=== PATIENT | female | born 1955 | race African-American/Black ===

== ENCOUNTER 2018-01-29 12:03 | Emergency (ER) | payer OTHER, MEDICAID ==
[~2018-01-29] VITALS: Ht 162.6 cm; Wt 87.4 kg
[2018-01-29 12:35] LABS: HEMATOCRIT. 31.8 % (36.0-48.0); HEMOGLOBIN. 10.4 g/dL (12.0-16.0); MEAN CORPUSCULAR HEMOGLOBIN 28.8 pg (28.0-32.0); MEAN CORPUSCULAR VOLUME 87.6 fL (81.0-99.0); MEAN PLATELET VOLUME 9.5 fl (7.4-10.4); PLATELET 323 x1000/uL (130-400); RED BLOOD CELL COUNT 3.63 mill/uL (4.2-5.4); RED CELL DISTRIBUTION WIDTH 14.7 % (11.6-14.6)
[2018-01-29 12:43] LABS: CHLORIDE 105 mEq/L (98-107)
[2018-01-29 13:10] LABS: PLATELET ESTIMATE NORMAL
[2018-01-29] MEDS ORDERED: VISCOUS LIDOCAINE 2% 15 ML UDC MM STA (16:21)
[2018-01-29] MEDS ORDERED: LACTULOSE 20G/30ML UDC PO ONE (16:30)
[2018-01-29] MEDS ORDERED: MAGNESIUM CITRATE 300ML SOLUTION PO ONE (16:30)
[2018-01-29 17:16] LABS: CLARITY URINE CLEAR (CLEAR); COLOR URINE YELLOW (YELLOW); KETONES URINE NEGATIVE (NEGATIVE); LEUKOCYTE ESTERASE URINE NEGATIVE (NEGATIVE); NITRITE URINE NEGATIVE (NEGATIVE); OCCULT BLOOD URINE TRACE (NEGATIVE); PH URINE 5.5 (4.5-8.0); PROTEIN URINE 3+ (NEGATIVE); SPECIFIC GRAVITY URINE 1.008 (1.005-1.030); UROBILINOGEN URINE 0.2 E.U./dL (0.2-1.0)
[2018-01-29 19:01] VITALS: BP 129/69
== END 2018-01-29 19:02 | disposition home or self-care (01) ==
LOC: ER 12:03
DX: K59.00 Constipation, unspecified (principal); N28.9 Disorder of kidney and ureter, unspecified; R10.30 Lower abdominal pain, unspecified; I10 Essential (primary) hypertension; F17.210 Nicotine dependence, cigarettes, uncomplicated; F12.90 Cannabis use, unspecified, uncomplicated; Z71.6 Tobacco abuse counseling
CPT/HCPCS: 36415; 74176; 80053; 81003; 83690; 85025; 99285; 99406

== ENCOUNTER 2019-12-02 12:01 | Inpatient (IN) | payer OTHER, MEDICAID ==
[~2019-12-02] VITALS: Ht 152.4 cm; Wt 73.5 kg
[2019-12-02] MEDS ORDERED: KETOROLAC 30MG/ML VIAL IV ONE (12:30)
[2019-12-02] MEDS ORDERED: KETOROLAC 30MG/ML VIAL IM ONE (13:15)
[2019-12-02] MEDS ORDERED: MORPHINE SULFATE 10 MG/ML CPJ IV ONE (15:45)
[2019-12-02] MEDS ORDERED: HYDROCODONE/ACETAMINOPHEN 5/325MG TABLET PO STA (17:26)
[2019-12-02 18:10] LABS: BASOPHILS % 0.6 % (0.0-2.0); EOSINOPHILS % 2.4 % (0.0-5.0); HEMATOCRIT. 31.4 % (36.0-48.0); HEMOGLOBIN. 10.6 g/dL (12.0-16.0); LYMPHOCYTES % 10.7 % (20.0-50.0); MEAN CORPUSCULAR VOLUME 86.3 fL (81.0-99.0); MEAN PLATELET VOLUME 9.3 fl (7.4-10.4); MONOCYTES % 5.2 % (2.0-8.0); NEUTROPHILS % 81.1 % (40.0-76.0); PLATELET 327 x1000/uL (130-400); RED BLOOD CELL COUNT 3.64 mill/uL (4.2-5.4); RED CELL DISTRIBUTION WIDTH 15.7 % (11.6-14.6)
[2019-12-02 18:15] LABS: CHLORIDE 107 mEq/L (98-107)
[2019-12-02 18:16] LABS: INR 0.9; PROTHROMBIN TIME 9.9 sec (9.6-11.0)
[2019-12-02 18:17] LABS: ETHANOL BLOOD < 10 mg/dL
[2019-12-02 18:31] LABS: CREATINE KINASE 45 IU/L (26-192)
[2019-12-02] MEDS ORDERED: ACETAMINOPHEN 325MG TABLET PO PRN (19:15)
[2019-12-02] MEDS ORDERED: HYDROCODONE/ACETAMINOPHEN 5/325MG TABLET PO PRN (19:15)
[2019-12-02] MEDS ORDERED: ONDANSETRON HCL 4MG/2ML INJ IV PRN (19:15)
[2019-12-02] MEDS ORDERED: POTASSIUM CHLORIDE 20MEQ TABLET SR PO NR (19:15)
[2019-12-02] MEDS ORDERED: POTASSIUM CHLORIDE 10MEQ TABLET SR PO NR (21:15)
[2019-12-03] MEDS: HEPARIN 5000 UNITS/ML VIAL SUBCUT SCH ×3 (00:43→22:17)
[2019-12-03] MEDS: CLONIDINE 0.1MG TABLET PO PRN ×2 (00:44→14:34)
[2019-12-03] MEDS: HYDROCODONE/ACETAMINOPHEN 5/325MG TABLET PO PRN ×3 (00:45→22:18)
[2019-12-03] MEDS ORDERED: TRAZODONE HCL 50MG TABLET PO PRN ×2 (04:00→04:15)
[2019-12-03 05:56] LABS: CLARITY URINE CLEAR (CLEAR); COLOR URINE YELLOW (YELLOW); KETONES URINE NEGATIVE (NEGATIVE); LEUKOCYTE ESTERASE URINE NEGATIVE (NEGATIVE); NITRITE URINE NEGATIVE (NEGATIVE); OCCULT BLOOD URINE TRACE (NEGATIVE); PROTEIN URINE 3+ (NEGATIVE); SPECIFIC GRAVITY URINE 1.017 (1.005-1.030); UROBILINOGEN URINE 0.2 E.U./dL (0.2-1.0)
[2019-12-03] MEDS: TRAMADOL 50MG TABLET PO PRN (06:00)
[2019-12-03 06:09] LABS: METHADONE URINE SCREEN NEGATIVE (NEGATIVE); OPIATES URINE SCREEN PRESUMTIVE POSITIVE (NEGATIVE)
[2019-12-03 06:10] LABS: *AMPHETAMINES SCREEN URINE NEGATIVE (NEGATIVE); *BARBITURATES SCREEN URINE NEGATIVE (NEGATIVE); *BENZODIAZEPINES SCREEN URINE NEGATIVE (NEGATIVE); *COCAINE SCREEN URINE PRESUMTIVE POSITIVE (NEGATIVE); CANNABINOID URINE SCREEN NEGATIVE (NEGATIVE); PHENCYCLIDINE URINE SCREEN NEGATIVE (NEGATIVE)
[2019-12-03 08:28] LABS: BASOPHILS % 0.4 % (0.0-2.0); EOSINOPHILS % 3.4 % (0.0-5.0); HEMATOCRIT. 28.6 % (36.0-48.0); HEMOGLOBIN. 9.6 g/dL (12.0-16.0); LYMPHOCYTES % 19.9 % (20.0-50.0); MEAN CORPUSCULAR HEMOGLOBIN 28.9 pg (28.0-32.0); MEAN CORPUSCULAR VOLUME 86.6 fL (81.0-99.0); MEAN PLATELET VOLUME 8.9 fl (7.4-10.4); MONOCYTES % 8.5 % (2.0-8.0); NEUTROPHILS % 67.8 % (40.0-76.0); PLATELET 280 x1000/uL (130-400); RED BLOOD CELL COUNT 3.31 mill/uL (4.2-5.4); RED CELL DISTRIBUTION WIDTH 15.5 % (11.6-14.6)
[2019-12-03 08:35] LABS: CHLORIDE 112 mEq/L (98-107)
[2019-12-03] MEDS ORDERED: SODIUM CHLORIDE 0.45% 1,000 ML IV SCH (09:45)
[2019-12-03 10:39] LABS: CREATINE KINASE 37 IU/L (26-192)
[2019-12-03 12:00] VITALS: BP_SYST 142; BP_SYST 164; BP_DIAS 70; BP_DIAS 95
[2019-12-03] MEDS ORDERED: LORAZEPAM 1MG TABLET PO PRN (12:45)
[2019-12-03] MEDS: GABAPENTIN 100MG CAPSULE PO SCH ×2 (14:34→22:17)
[2019-12-03] MEDS: LIDOCAINE 5% PATCH TOP SCH (15:00)
[2019-12-03 16:00] VITALS: BP 142/75
[2019-12-03 20:00] VITALS: BP 120/71
[2019-12-04] VITALS: BP 146/78
[2019-12-04 04:00] VITALS: BP 149/78
[2019-12-04] MEDS: HYDROCODONE/ACETAMINOPHEN 5/325MG TABLET PO PRN ×3 (04:19→17:34)
[2019-12-04] MEDS: GABAPENTIN 100MG CAPSULE PO SCH (06:25)
[2019-12-04 07:03] LABS: BASOPHILS % 0.5 % (0.0-2.0); EOSINOPHILS % 4.5 % (0.0-5.0); HEMATOCRIT. 26.8 % (36.0-48.0); LYMPHOCYTES % 29.3 % (20.0-50.0); MEAN CORPUSCULAR HEMOGLOBIN 29.4 pg (28.0-32.0); MEAN CORPUSCULAR VOLUME 87.2 fL (81.0-99.0); MEAN PLATELET VOLUME 9.8 fl (7.4-10.4); MONOCYTES % 8.7 % (2.0-8.0); PLATELET 275 x1000/uL (130-400); RED BLOOD CELL COUNT 3.08 mill/uL (4.2-5.4); RED CELL DISTRIBUTION WIDTH 15.3 % (11.6-14.6)
[2019-12-04 07:07] LABS: CHLORIDE 111 mEq/L (98-107)
[2019-12-04 08:00] VITALS: BP 132/74
[2019-12-04] MEDS: HEPARIN 5000 UNITS/ML VIAL SUBCUT SCH ×2 (09:03→21:14)
[2019-12-04] MEDS: LIDOCAINE 5% PATCH TOP SCH (09:03)
[2019-12-04 12:00] VITALS: BP 123/72
[2019-12-04] MEDS: CITALOPRAM HYDROBROMIDE 10MG TABLET PO SCH (12:55)
[2019-12-04] MEDS: GABAPENTIN 300MG CAPSULE PO SCH ×2 (14:37→21:29)
[2019-12-04] MEDS: LACTULOSE 20G/30ML UDC PO SCH ×3 (14:37→21:00)
[2019-12-04 16:00] VITALS: BP 115/68
[2019-12-04] MEDS: DOCUSATE SODIUM 100MG CAPSULE PO SCH (17:34)
[2019-12-04 20:45] VITALS: BP 160/79
[2019-12-04] MEDS: POLYETHYLENE GLYCOL 3350 (17GM) 1 DOSE PACK PO SCH (21:00)
[2019-12-05 00:19] VITALS: BP 120/72
[2019-12-05 04:36] VITALS: BP 153/73
[2019-12-05] MEDS: GABAPENTIN 300MG CAPSULE PO SCH ×3 (05:54→21:13)
[2019-12-05 07:49] LABS: BASOPHILS % 0.5 % (0.0-2.0); EOSINOPHILS % 4.7 % (0.0-5.0); HEMATOCRIT. 28.2 % (36.0-48.0); HEMOGLOBIN. 9.5 g/dL (12.0-16.0); LYMPHOCYTES % 23.8 % (20.0-50.0); MEAN CORPUSCULAR HEMOGLOBIN 29.3 pg (28.0-32.0); MEAN CORPUSCULAR VOLUME 87.4 fL (81.0-99.0); MEAN PLATELET VOLUME 9.7 fl (7.4-10.4); PLATELET 290 x1000/uL (130-400); RED BLOOD CELL COUNT 3.23 mill/uL (4.2-5.4); RED CELL DISTRIBUTION WIDTH 14.9 % (11.6-14.6)
[2019-12-05 07:59] LABS: CHLORIDE 111 mEq/L (98-107)
[2019-12-05 08:00] VITALS: BP 142/78
[2019-12-05 08:17] LABS: FOLIC ACID (FOLATE) SERUM 8.6 ng/mL (>5.38)
[2019-12-05] MEDS: CITALOPRAM HYDROBROMIDE 10MG TABLET PO SCH (08:44)
[2019-12-05] MEDS: THIAMINE HCL 100MG TABLET PO SCH (08:45)
[2019-12-05] MEDS: LIDOCAINE 5% PATCH TOP SCH (08:45)
[2019-12-05] MEDS: DOCUSATE SODIUM 100MG CAPSULE PO SCH ×2 (08:45→17:17)
[2019-12-05] MEDS: HYDROCODONE/ACETAMINOPHEN 5/325MG TABLET PO PRN ×3 (08:45→23:37)
[2019-12-05] MEDS: FOLIC ACID 1MG TABLET PO SCH (08:45)
[2019-12-05] MEDS: LACTULOSE 20G/30ML UDC PO SCH ×2 (08:47→12:40)
[2019-12-05] MEDS: HEPARIN 5000 UNITS/ML VIAL SUBCUT SCH ×2 (08:47→21:13)
[2019-12-05 12:00] VITALS: BP 139/82
[2019-12-05] MEDS ORDERED: POTASSIUM CHLORIDE 20MEQ TABLET SR PO NR (12:00)
[2019-12-05 16:00] VITALS: BP 152/85
[2019-12-05] MEDS: TRAMADOL 50MG TABLET PO PRN (17:17)
[2019-12-05] MEDS: CLONIDINE 0.1MG TABLET PO PRN (17:17)
[2019-12-05 20:00] VITALS: BP 112/71
[2019-12-05] MEDS: POLYETHYLENE GLYCOL 3350 (17GM) 1 DOSE PACK PO SCH (21:00)
[2019-12-06] VITALS: BP 164/78
[2019-12-06 04:00] VITALS: BP 118/64
[2019-12-06] MEDS: HYDROCODONE/ACETAMINOPHEN 5/325MG TABLET PO PRN ×2 (04:09→12:09)
[2019-12-06] MEDS: GABAPENTIN 300MG CAPSULE PO SCH ×2 (06:09→15:16)
[2019-12-06 07:54] LABS: BASOPHILS % 0.6 % (0.0-2.0); EOSINOPHILS % 4.3 % (0.0-5.0); HEMOGLOBIN. 9.5 g/dL (12.0-16.0); MEAN CORPUSCULAR HEMOGLOBIN 29.7 pg (28.0-32.0); MEAN CORPUSCULAR VOLUME 87.2 fL (81.0-99.0); MEAN PLATELET VOLUME 9.5 fl (7.4-10.4); MONOCYTES % 8.5 % (2.0-8.0); NEUTROPHILS % 60.6 % (40.0-76.0); PLATELET 298 x1000/uL (130-400); RED BLOOD CELL COUNT 3.21 mill/uL (4.2-5.4); RED CELL DISTRIBUTION WIDTH 15.1 % (11.6-14.6)
[2019-12-06 08:00] VITALS: BP 135/58
[2019-12-06 08:32] LABS: CHLORIDE 111 mEq/L (98-107)
[2019-12-06] MEDS: FOLIC ACID 1MG TABLET PO SCH (08:59)
[2019-12-06] MEDS: DOCUSATE SODIUM 100MG CAPSULE PO SCH ×2 (09:00→17:54)
[2019-12-06] MEDS: THIAMINE HCL 100MG TABLET PO SCH (09:00)
[2019-12-06] MEDS: CITALOPRAM HYDROBROMIDE 10MG TABLET PO SCH (09:00)
[2019-12-06] MEDS: HEPARIN 5000 UNITS/ML VIAL SUBCUT SCH (09:01)
[2019-12-06] MEDS: LIDOCAINE 5% PATCH TOP SCH (09:06)
[2019-12-06 12:00] VITALS: BP 155/78
[2019-12-06] MEDS ORDERED: GABA-531 MT (13:32)
[2019-12-06] MEDS ORDERED: DOCU-138 MT (13:32)
[2019-12-06 16:00] VITALS: BP 122/65
[2019-12-06 16:44] VITALS: BP 122/65
[2019-12-12 08:08] LABS: 25-HYDROXY VITAMIN D3 10 ng/mL (.)
== END 2019-12-06 17:48 | disposition home or self-care (01) | DRG 552 ==
LOC: ER 12:23 → 6EST 19:02 → EDBEDREQ 19:05 → EDBEDREQTM 19:05 → ENRESERV 12-03 11:10 → 6EST 12-03 12:30
PROVIDERS: ADMIT Internal Medicine; ATTEND Internal Medicine
DX: M54.42 Lumbago with sciatica, left side (principal); N17.9 Acute kidney failure, unspecified; M16.0 Bilateral primary osteoarthritis of hip; E78.5 Hyperlipidemia, unspecified; E78.00 Pure hypercholesterolemia, unspecified; E86.0 Dehydration; F14.10 Cocaine abuse, uncomplicated; F32.9 Major depressive disorder, single episode, unspecified; F41.9 Anxiety disorder, unspecified; I12.9 Hypertensive chronic kidney disease with stage 1 through stage 4 chronic kidney disease, or unspecified chronic kidney disease; K59.00 Constipation, unspecified; R79.89 Other specified abnormal findings of blood chemistry; G89.4 Chronic pain syndrome; R26.2 Difficulty in walking, not elsewhere classified; R53.81 Other malaise; G62.9 Polyneuropathy, unspecified; E11.22 Type 2 diabetes mellitus with diabetic chronic kidney disease; N18.9 Chronic kidney disease, unspecified; D64.9 Anemia, unspecified; Z20.828 Contact with and (suspected) exposure to other viral communicable diseases; Z76.5 Malingerer [conscious simulation]; Z82.49 Family history of ischemic heart disease and other diseases of the circulatory system; D25.9 Leiomyoma of uterus, unspecified
CPT/HCPCS: 36415; 71045; 72192; 73502; 73700; 76770; 80048; 80053; 80305; 80320; 81003; 82306; 82550; 82607; 82746; 83036; 83735; 84443; 85025; 93005; 93970; 97116; 97162; 97166; 97530; 99285; J1644; J1885; J2270; G0480; U0003-CS